=== PATIENT | female | born 1950 | race Caucasian/White ===

== ENCOUNTER 2019-11-15 10:57 | Emergency (ER) | payer MEDICARE, BC ==
[~2019-11-15] VITALS: Ht 170.2 cm; Wt 89.4 kg
--- NOTE | 2019-11-15 11:44 | Emergency Department Note ---
History of Present Illnes History of Present Illness Chief Complaint: General Medicine Complaints History of Present Illness This is a 69 year old female RHD presents to the ED after falling onto her left outstretched hand, . 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 Any updates have been documented here. Past Medical History Recent Fever: No Clinical Suspicion of Infectio: No New/Unexplained Change in Ment: No Past Medical History: Hypertension Past Surgical History: None Social History Smoking Cessation: Never Smoker Alcohol Use: None Any Illegal Drug Use: No Review of Systems Review of Systems Constitutional: Reports no symptoms EENTM: Reports no symptoms Cardiovascular: Reports no symptoms Respiratory: Reports no symptoms Gastrointestinal: Reports no symptoms Genitourinary: Reports no symptoms Musculoskeletal: Reports joint pain Integumentary: Reports no symptoms Neurological: Reports no symptoms Psychological: Reports no symptoms Endocrine: Reports no symptoms Hematological/Lymphatic: Reports no symptoms Physical Exam Related Data Allergies: Coded Allergies: Penicillins (Verified Allergy, Severe, 11/15/19) iodine (Verified Allergy, Severe, 11/15/19) metoprolol (Verified Allergy, Severe, 11/15/19) Uncoded Allergies: SULFA (Allergy, Severe, 11/15/19) Triage Vital Signs Vital Signs Date Time Temp Pulse Resp B/P (MAP) Pulse Ox O2 Delivery O2 Flow Rate FiO2 11/15/19 11:54 98.4 65 18 133/79 96 Vital signs reviewed: Yes Physical Exam CONSTITUTIONAL Constitutional: Present well-developed, Present well-nourished HENT HENT: Present normocephalic, Present atraumatic, Present oropharynx clear/moist, Present nose normal HENT L/R: Present left ext ear normal, Present right ext ear normal EYES Eyes: Reports PERRL, Reports conjunctivae normal NECK Neck: Present ROM normal PULMONARY Pulmonary: Present effort normal, Present breath sounds normal CARDIOVASCULAR Cardiovascular: Present regular rhythm, Present heart sounds normal, Present capillary refill normal, Present normal rate GASTROINTESTINAL Abdominal: Present soft, Present nontender, Present bowel sounds normal GENITOURINARY Genitourinary: Present exam deferred SKIN Skin: Present warm, Present dry MUSCULOSKELETAL Musculoskeletal: Present edema, Present deformity (L distal radius), Present tenderness NEUROLOGICAL Neurological: Present alert, Present oriented x 3, Present no gross motor or sensory deficits PSYCHOLOGICAL Psychological: Present mood/affect normal, Present judgement normal Results Imaging Imaging results reviewed: Yes Impressions [place] [address] Patient Name: BIGG ESPARZA MR #: [id number] : 1950 Age/Sex: 69/F Req #: [id number] Adm Physician: Ordered by: TRACE DUNN DO Report #: [id number] Location: ER Room/Bed: Procedure: [id number] DX/FOREARM LEFT 2 VIEW Exam Date: 11/15/19 Exam Time: 1215 REPORT STATUS: Signed FOREARM LEFT 2 VIEW - Multiple views HISTORY: distal radial pain COMPARISON: None available. FINDINGS: Bones: There is mildly displaced fracture of distal radial shaft width posterior angulation of distal fracture fragment. Joints: The joint spaces are well-maintained. Soft tissues: The soft tissues appear unremarkable. IMPRESSION: Colles' fracture deformity of radius. Recommend further evaluation with x-ray wrist to assess carpal fractures. Signed by: Kavon Daigle MD on 11/15/2019 12:42 PM Dictated By: KAVON DAIGLE MD [id number] Transcribed By: DEIDRE on 11/15/19 1242 COPY TO: TRACE DUNN DO~ Procedures Orthopedic Fracture Reduction Fracture: Fracture #1 Side: left Fracture reduction location: radius Analgesia: hematoma block Technique: traction/counter-traction Post-reduction xrays demonstra: acceptable reduction Post-reduction neuro exam: intact Post-reduction vascular exam: intact Spling applied: Yes Patient tolerated procedure: well Assessment & Plan Medical Decision Making MDM 69 yof presents with injury to L arm : Diff Dx : Fracture, dislocation, open fx, sprain , strain, contusion Assessment & Plan Final Impression: (1) Colles' fracture of left radius Depart Disposition: HOME, SELF-CARE Last Vital Signs Date Time Temp Pulse Resp B/P (MAP) Pulse Ox O2 Delivery O2 Flow Rate FiO2 11/15/19 11:54 98.4 65 18 133/79 96 Medications in the ED Acetaminophen/ Hydrocodone Bitart 1 ea ONCE ONCE PO Last administered on 11/15/19at 12:30; Admin Dose 1 EA; Start 11/15/19 at 12:15; Stop 11/15/19 at 12:17; Status DC Lidocaine HCl 20 ml STK-MED ONCE .ROUTE ; Start 11/15/19 at 12:58; Stop 11/15/19 at 12:52; Status DC Lidocaine HCl 20 ml ONCE ONCE INJ Last administered on 11/15/19at 13:30; Admin Dose 20 ML; Start 11/15/19 at 13:45; Stop 11/15/19 at 13:43; Status DC TRACE DUNN DO Nov 15, 2019 11:44
[2019-11-15] MEDS ORDERED: HYDROCODONE/APAP 5MG-325MG TAB PO ONE (12:15)
--- NOTE | 2019-11-15 12:46 | Diagnostic Imaging Report ---
FOREARM LEFT 2 VIEW - Multiple views HISTORY: distal radial pain COMPARISON: None available. FINDINGS: Bones: There is mildly displaced fracture of distal radial shaft width posterior angulation of distal fracture fragment. Joints: The joint spaces are well-maintained. Soft tissues: The soft tissues appear unremarkable. IMPRESSION: Colles' fracture deformity of radius. Recommend further evaluation with x-ray wrist to assess carpal fractures. Signed by: Kavon Daigle MD on 11/15/2019 12:42 PM
[2019-11-15] MEDS ORDERED: LIDOCAINE HCL 1% LOCAL INJ 20 ML VIAL ONE (12:58)
[2019-11-15] MEDS ORDERED: LIDOCAINE HCL 1% LOCAL INJ 20 ML VIAL INJ ONE (13:45)
== END 2019-11-15 13:40 | disposition home or self-care (01) ==
LOC: ER 11:03
DX: S52.532A Colles' fracture of left radius, initial encounter for closed fracture (principal); W18.30XA Fall on same level, unspecified, initial encounter; I10 Essential (primary) hypertension; N18.9 Chronic kidney disease, unspecified; F41.9 Anxiety disorder, unspecified; F32.9 Major depressive disorder, single episode, unspecified
CPT/HCPCS: 25605; 73090; 99283; J2001

== ENCOUNTER → 2019-12-19 | Outpatient (RCR) | payer MEDICARE, BC ==
[~2019-12-19] MED LIST: BIOTIN5 M1; BUDESONIDE EC3 MG PO; BUPROPION HCL100 MG PO; CALCIUM600 MG; CRESTOR10 MG PO; CYMBALTA30 MG PO; DOXEPIN HCL75 MG PO; ESTRADIOL VG; LEVOCETIRIZINE D5 MG PO; LEVOTHYROXINE50 MCG PO; LYRICA100 MG PO; MELATONIN3 MG PO; METOCLOPRAM5 MG/5 ML PO; MICARDIS80 MG PO; NORCO 5-325 TA1 EACH PO; OMEPRAZOLE40 MG PO
== END ==
LOC: OT 12-10 15:16
PROVIDERS: ATTEND Orthopaedic Surgery
DX: S52.532D Colles' fracture of left radius, subsequent encounter for closed fracture with routine healing (principal); M25.632 Stiffness of left wrist, not elsewhere classified; M25.532 Pain in left wrist; R53.1 Weakness

== ENCOUNTER 2020-01-16 14:00 | Outpatient (RCR) | payer MEDICARE, BC | END 2020-01-19 | LOC: OT 14:00 | PROVIDERS: ATTEND Orthopaedic Surgery | DX: S52.502D Unspecified fracture of the lower end of left radius, subsequent encounter for closed fracture with routine healing (principal); M25.532 Pain in left wrist; M25.632 Stiffness of left wrist, not elsewhere classified; R53.1 Weakness ==

== ENCOUNTER 2020-02-04 13:39 | Outpatient (RCR) | payer MEDICARE, BC | END 2020-02-18 | LOC: OT 13:39 | PROVIDERS: ATTEND Orthopaedic Surgery | DX: S52.532D Colles' fracture of left radius, subsequent encounter for closed fracture with routine healing (principal) ==